=== PATIENT | male | born 1945 | race Hispanic/Latino ===

== ENCOUNTER → 2020-11-06 | Outpatient (CLI) | payer OTHER ==
[~2020-11-06] MED LIST: AMIODARONE HCL200 M1; ASA81 MG; ASPIRIN81 M2 PO; BACTRIM DS1 EA PO; COVID-19 VACC, MRNA(MODERNA)/PF 100 MCG/0.5 ML VIAL IM ONE; Z.0.ACYCLOVIR400 MG PO; Z.0.AMIODARONE HCL20 PO; Z.0.FLOMAX0.4 MG; Z.0.FLOMAX0.4 MG PO; Z.0.LEVOTHYROXINE25 PO; Z.0.METOPROLOL SUCC5; Z.0.METOPROLOL SUCC5 PO; Z.0.PRAVACHOL40 MG; Z.0.PRAVASTATIN SOD4 PO; Z.0.PROSCAR5 MG; Z.0.PROSCAR5 MG PO; Z.0.SYNTHROID25 MCG; Z.0.VICODIN 5-5001 E PO; [UNRECOGNIZED DRUG - OTHER]
== END | disposition home or self-care (01) ==
LOC: VACCPMC 15:06
DX: Z23 Encounter for immunization (principal); Z20.822 Contact with and (suspected) exposure to COVID-19
CPT/HCPCS: 91301

== ENCOUNTER → 2020-12-04 | Outpatient (CLI) | payer MEDICARE, OTHER | END | disposition home or self-care (01) | LOC: VACCPMC 08:00 | DX: Z23 Encounter for immunization (principal); Z20.822 Contact with and (suspected) exposure to COVID-19 | CPT/HCPCS: 91301 ==